=== PATIENT | female | born 1970 | race Caucasian/White ===

== ENCOUNTER 2019-01-29 07:17 | Emergency (ER) | payer BC ==
[~2019-01-29] VITALS: Ht 160 cm; Wt 59.0 kg
[~2019-01-29 07:17] MED LIST: BUPR300T55 PO; RIZA10TA21 PO
[2019-01-29 07:20] VITALS: BP_SYST 132
--- NOTE | 2019-01-29 07:20 | NUR ---
Patient to ER bed 7 to gown for evaluation. Side rails up. Report given to SHARMAINE Che.
--- NOTE | 2019-01-29 07:35 | NUR ---
DR WHEATLEY EXAMINING PATIENT IN THE ROOM.
[2019-01-29] MEDS ORDERED: KETOROLAC TROMETHAMINE 30 MG VIAL IM ONE (07:45)
--- NOTE | 2019-01-29 07:53 | NUR ---
PATIENT JUST HAD HER XRAY OF THE RIGHT KNEE.
--- NOTE | 2019-01-29 07:56 | NUR ---
ADMINISTERED TORADOL 30 MG IM ORDERED.
--- NOTE | 2019-01-29 08:34 | NUR ---
OBDULIO WRAP BANDAGE APPLIED TO RIGHT KNEE, USE OF CRUTCHES PROVIDED,PT ABLE TO DEMONSTRATE WELL.
--- NOTE | 2019-01-29 08:35 | NUR ---
Patient given written and verbal discharge instructions and verbalizes understanding. ER MD WHEATLEY discussed with patient the results and treatment provided. Patient in stable condition. ID arm band removed. Rx of PREDNISONE given. Patient educated on pain management and to follow up with PMD. Pain Scale . Opportunity for questions provided and answered. Medication side effect fact sheet provided.
== END 2019-01-29 08:35 | disposition home or self-care (01) ==
LOC: SED 07:17
DX: M25.561 Pain in right knee (principal); I10 Essential (primary) hypertension; Z86.79 Personal history of other diseases of the circulatory system; Z98.84 Bariatric surgery status
CPT/HCPCS: 73564; 96372; 99283; J1885